=== PATIENT | female | born 1965 | race Caucasian/White ===

== ENCOUNTER 2017-07-16 05:47 | Inpatient (IN) | payer OTHER ==
[2017-07-16] MEDS ORDERED: PROPOFOL 20 ML (08:05)
[2017-07-16] MEDS ORDERED: CEFAZOLIN 1 GM INJ (08:05)
[2017-07-16] MEDS ORDERED: LIDOCAINE 100 MG SYRINGE (08:05)
[2017-07-16] MEDS ORDERED: SUCCINYLCHOLINE CHLORIDE 100 MG/5 ML SYG IV (08:05)
[2017-07-16] MEDS ORDERED: ROCURONIUM 50 MG INJ (08:05)
[2017-07-16] MEDS ORDERED: ROPIVACAINE 0.2% 20 ML VIAL ×2 (08:05→08:21)
[2017-07-16] MEDS ORDERED: SUGAMMADEX SODIUM 200 MG/2 ML VIAL IV (08:06)
[2017-07-16] MEDS: BUPIVACAINE 0.25%/EPI (SDV) 30 ML INJ (08:25)
[2017-07-16] MEDS: POLYMYXIN/BACITRACIN 1L IRRIG (08:56)
[2017-07-16] MEDS ORDERED: MEPERIDINE 25 MG INJ IV (10:00)
[2017-07-16] MEDS ORDERED: ONDANSETRON 4 MG INJ IV (10:00)
[2017-07-16] MEDS ORDERED: METOCLOPRAMIDE 10 MG INJ IV (10:00)
[2017-07-16] MEDS ORDERED: HYDROmorphONE (0.2 MG/ML) 10ML SYG IV ×3 (10:00)
[2017-07-16] MEDS ORDERED: FENTAnyl 50 MCG/ML VIAL IV ×2 (10:00)
[2017-07-16] MEDS ORDERED: DIPHENHYDRAMINE 50 MG INJ IV (10:00)
[2017-07-16] MEDS: THROMBIN 5000 UNIT VIAL (10:12)
[2017-07-16] MEDS: HEMOSTATIC MATRIX SYG ZFS (10:12)
[2017-07-16] MEDS ORDERED: DIPHENHYDRAMINE 50 MG CAP PO (11:30)
[2017-07-16] MEDS ORDERED: ZOLPIDEM 5 MG TAB PO (11:30)
[2017-07-16] MEDS ORDERED: HYDROCODONE/APAP (5/325) TAB PO (11:30)
[2017-07-16] MEDS ORDERED: HYDROmorphONE 0.5 MG/0.5 ML SYG IV (11:30)
[2017-07-16] MEDS: KETOROLAC 30 MG INJ IV ×3 (11:55→23:33)
[2017-07-16] MEDS: LACTATED RINGER'S 1,000 ML IV ×3 (13:00→20:40)
[2017-07-16] MEDS: METOCLOPRAMIDE 10 MG TAB PO ×3 (13:36→23:33)
[2017-07-16] MEDS: CEFAZOLIN 1 GM/50 ML (PMX) 50 ML IVPB ×2 (13:55→22:00)
[2017-07-16] MEDS: HYDROCODONE/APAP (5/325) TAB PO (15:57)
[2017-07-17] MEDS: LACTATED RINGER'S 1,000 ML IV ×2 (04:51→11:08)
[2017-07-17 05:16] LABS: ADD MAN DIFF? NO
[2017-07-17 05:24] LABS: WHITE BLOOD COUNT 9.5 10^3/ul (4.8-10.8)
[2017-07-17 05:24] LABS: BASOPHILS % 0.4 % (0.0-2.0); EOSINOPHILS # 0.1 10^3/ul (0.0-0.5); EOSINOPHILS % 0.9 % (0.0-7.0); HEMATOCRIT 32.1 % (37.0-47.0); HEMOGLOBIN 10.9 g/dl (12.0-16.0); LYMPHOCYTES % 20.7 % (15.0-51.0); MEAN CORPUSCULAR HEMOGLOBIN 29.9 pg (29.0-33.0); MEAN CORPUSCULAR VOLUME 87.9 fl (82.0-101.0); MEAN PLATELET VOLUME 10.2 fl (7.4-10.4); MONOCYTE # 0.9 10^3/ul (0.3-0.9); MONOCYTES % 8.9 % (0.0-11.0); NEUTROPHIL # 6.5 10^3/ul (1.6-7.5); NEUTROPHILS % 68.8 % (39.0-77.0); PLATELET COUNT 182 10^3/UL (140-415); RED BLOOD COUNT 3.65 10^6/ul (4.20-5.40); RED CELL DISTRIBUTION WIDTH 12.2 % (11.5-14.5)
[2017-07-17 05:39] LABS: ANION GAP 13 (8-16); BLOOD UREA NITROGEN 4 mg/dl (7-20); CARBON DIOXIDE 24 mmol/L (21-31); CHLORIDE 110 mmol/L (97-110); CREATININE 0.61 mg/dl (0.44-1.00); POTASSIUM 3.6 mmol/L (3.5-5.1); SODIUM 143 mmol/L (135-144)
[2017-07-17] MEDS: KETOROLAC 30 MG INJ IV ×4 (05:44→23:28)
[2017-07-17] MEDS: METOCLOPRAMIDE 10 MG TAB PO ×4 (05:44→23:28)
[2017-07-17] MEDS: CEFAZOLIN 1 GM/50 ML (PMX) 50 ML IVPB ×3 (05:44→22:07)
[2017-07-18] MEDS: KETOROLAC 30 MG INJ IV ×2 (05:22→11:30)
[2017-07-18] MEDS: CEFAZOLIN 1 GM/50 ML (PMX) 50 ML IVPB (05:37)
[2017-07-18] MEDS: METOCLOPRAMIDE 10 MG TAB PO (05:37)
== END 2017-07-18 13:00 | disposition home or self-care (01) | DRG 743 ==
LOC: REC 05:47 → MS1 12:12
PROVIDERS: Obstetrics & Gynecology
PROC: 0UT90ZZ Resection of Uterus, Open Approach (ICD-10-PCS; principal; 2017-07-16 07:30)
PROC: 0JQC0ZZ Repair Pelvic Region Subcutaneous Tissue and Fascia, Open Approach (ICD-10-PCS; 2017-07-16 07:30)
PROC: 0UT50ZZ Resection of Right Fallopian Tube, Open Approach (ICD-10-PCS; 2017-07-16 07:30)
PROC: 0JUC0JZ Supplement of Pelvic Region Subcutaneous Tissue and Fascia with Synthetic Substitute, Open Approach (ICD-10-PCS; 2017-07-16 07:30)
DX: N81.3 Complete uterovaginal prolapse (principal); D25.9 Leiomyoma of uterus, unspecified; N39.46 Mixed incontinence; E11.9 Type 2 diabetes mellitus without complications; D64.9 Anemia, unspecified; K59.00 Constipation, unspecified
CPT/HCPCS: 80051; 82565; 82962; 84520; 85025; 86850; 86900; 86901; 86920; 87086; 88305